=== PATIENT | male | born 1990 | race Asian ===

== ENCOUNTER 2016-09-21 14:43 | Inpatient (IN) | payer BC ==
[~2016-09-21] VITALS: Ht 175.3 cm; Wt 93.7 kg
[2016-09-21 15:59] LABS: BASOPHIL % 0.3 % (0-2); PLATELET COUNT 141 x10^3mcL (130-400)
[2016-09-21 16:02] LABS: RED CELL DISTRIBUTION WIDTH 14.7 % (11.5-14.5)
[2016-09-21 16:08] LABS: CALCIUM 8.2 mg/dL (8.5-10.1); CARBON DIOXIDE 20.6 mmol/L (21-32); GFR1 > 60 mL/min; GLUCOSE SERUM 106 mg/dL (74-106)
[2016-09-21 16:13] LABS: microscopic required? YES; urine erythrocyte NEGATIVE (NEGATIVE)
[2016-09-21 16:16] LABS: ALKALINE PHOSPHATASE 59 U/L (46-116); ALT/SGPT 22 U/L (16-63); AST/SGOT 24 U/L (15-37); BILIRUBIN TOTAL 0.6 mg/dL (0.20-1.00); LACTIC DEHYDROGENASE (LDH) 235 U/L (100-190); MAGNESIUM 1.6 mg/dL (1.8-2.4); TOTAL PROTEIN, SERUM 7.3 g/dL (6.4-8.2)
[2016-09-21 16:21] LABS: ALBUMIN 3.2 g/dL (3.4-5.0)
[2016-09-21 16:35] LABS: CHLORIDE SERUM 97 mmol/L (98-107); POTASSIUM SERUM 4.1 mmol/L (3.5-5.1); SODIUM SERUM 129 mmol/L (136-145)
[2016-09-21 20:06] VITALS: BP 90/54
[2016-09-21 20:09] VITALS: Ht 175.3 cm; Wt 93.7 kg
[2016-09-21 21:05] LABS: PHOSPHOROUS 3.6 mg/dL (2.5-4.9)
[2016-09-21 21:06] LABS: CHOLESTEROL/HDL RATIO 2.5
[2016-09-21 21:15] LABS: FREE T4 1.04 ng/dL (0.76-1.46); T4(THYROXINE) 5.6 ug/dL (4.7-13.3)
[2016-09-21 21:18] LABS: T3 TOTAL 0.63 ng/mL
[2016-09-21 21:41] VITALS: BP 99/64
[2016-09-21 23:08] VITALS: BP 99/64
[2016-09-22 01:30] VITALS: BP 99/63
[2016-09-22 05:53] VITALS: BP 101/47
[2016-09-22 06:26] LABS: CALCIUM 7.5 mg/dL (8.5-10.1); CARBON DIOXIDE 20.7 mmol/L (21-32); CHLORIDE SERUM 104 mmol/L (98-107); CREATININE SERUM 0.9 mg/dL (0.7-1.3); GFR1 > 60 mL/min; GLUCOSE SERUM 100 mg/dL (74-106); MAGNESIUM 1.8 mg/dL (1.8-2.4); SODIUM SERUM 134 mmol/L (136-145)
[2016-09-22 06:27] LABS: BASOPHIL % 0.4 % (0-2); PLATELET COUNT 140 x10^3mcL (130-400)
[2016-09-22 07:28] LABS: RED CELL DISTRIBUTION WIDTH 14.9 % (11.5-14.5)
[2016-09-22 09:15] VITALS: BP 107/80
[2016-09-22 13:46] VITALS: BP 115/76
[2016-09-22 17:45] VITALS: BP 114/80
[2016-09-22 19:50] VITALS: BP 119/53
[2016-09-23] VITALS (7 sets, daily range): BP systolic 92–125; BP diastolic 61–101
[2016-09-23 06:14] LABS: BASOPHIL % 0.4 % (0-2); PLATELET COUNT 147 x10^3mcL (130-400)
[2016-09-23 06:32] LABS: CALCIUM 7.7 mg/dL (8.5-10.1); CARBON DIOXIDE 20.5 mmol/L (21-32); CHLORIDE SERUM 97 mmol/L (98-107); GFR1 > 60 mL/min; GLUCOSE SERUM 105 mg/dL (74-106); MAGNESIUM 1.6 mg/dL (1.8-2.4); PHOSPHOROUS 2.9 mg/dL (2.5-4.9); POTASSIUM SERUM 4.5 mmol/L (3.5-5.1); SODIUM SERUM 128 mmol/L (136-145)
[2016-09-23 06:46] LABS: RED CELL DISTRIBUTION WIDTH 14.6 % (11.5-14.5)
[2016-09-23 13:08] LABS: RAPID PLASMA REAGIN Reactive (Non Reactive)
[2016-09-23 15:21] LABS: AMPHETAMINE QUAL UR NONE DETECTED (NEG <=1000)
[2016-09-24] VITALS (7 sets, daily range): BP systolic 93–112; BP diastolic 67–85
[2016-09-24 06:28] LABS: CALCIUM 7.9 mg/dL (8.5-10.1); CARBON DIOXIDE 24.2 mmol/L (21-32); CHLORIDE SERUM 99 mmol/L (98-107); GFR1 > 60 mL/min; GLUCOSE SERUM 116 mg/dL (74-106); PHOSPHOROUS 2.1 mg/dL (2.5-4.9); POTASSIUM SERUM 4.2 mmol/L (3.5-5.1); SODIUM SERUM 132 mmol/L (136-145)
[2016-09-24 07:05] LABS: BASOPHIL % 0.8 % (0-2); PLATELET COUNT 150 x10^3mcL (130-400)
[2016-09-24 07:10] LABS: RED CELL DISTRIBUTION WIDTH 15.4 % (11.5-14.5)
[2016-09-24] MEDS ORDERED: ALD25 PO (19:36)
[2016-09-24] MEDS ORDERED: COR3 PO (19:36)
[2016-09-24] MEDS ORDERED: ZES5 PO (19:36)
[2016-09-24] MEDS ORDERED: [UNRECOGNIZED DRUG - CODE] PO (19:40)
[2016-09-24] MEDS ORDERED: L20I IV (19:41)
[2016-09-24] MEDS ORDERED: AMERINET CHOICE1 PD3 IV (19:42)
[2016-09-24] MEDS ORDERED: LEV500PM IV (19:45)
== END 2016-09-24 23:00 | disposition other institution (70) | DRG 871 ==
LOC: ED 14:43 → DU 18:22 → MU 18:22 → DU 19:49 → MU 09-23 07:47 → DU 09-23 17:02
PROVIDERS: Emergency Medicine; ADMIT Family Medicine
DX: A41.9 Sepsis, unspecified organism (principal); J18.9 Pneumonia, unspecified organism; N17.0 Acute kidney failure with tubular necrosis; E87.1 Hypo-osmolality and hyponatremia; E44.0 Moderate protein-calorie malnutrition; I42.9 Cardiomyopathy, unspecified; A53.9 Syphilis, unspecified; E83.42 Hypomagnesemia; E66.9 Obesity, unspecified; E87.8 Other disorders of electrolyte and fluid balance, not elsewhere classified; F17.210 Nicotine dependence, cigarettes, uncomplicated; Z68.30 Body mass index [BMI] 30.0-30.9, adult; Z88.8 Allergy status to other drugs, medicaments and biological substances; I50.9 Heart failure, unspecified
CPT/HCPCS: 83880; 84439; J0456; J0558; J1940; J1956; J2060; J2270; J2543; J3475; J7030; J7620; J7626; Q0092